=== PATIENT | male | born 1960 | race African-American/Black ===

== ENCOUNTER 2016-04-21 19:12 | Emergency (ER) | payer MEDICARE, MEDICAID ==
[~2016-04-21] VITALS: Ht 175.3 cm; Wt 90.7 kg
[~2016-04-21 19:12] MED LIST: AMIN30LI4 PO; ATOR10TA PO; BISA10SU8 RC; CALC-7 PO; CARV12.52 PO; CLON0.1T PO; DIVA500T4 PO; DOCU-25 PO; HYDR-4075 PO; HYDR100T27 PO; LINA5TAB PO; LORA0.5T PO; MAGN400O6 PO; MINO2.5T2 PO; NA P133E RC; NIFE60TA2 PO; NITR0.4T6 SL; OLAN5TAB3 PO; TYL2T PO
[2016-04-21 20:32] VITALS: BP 150/86
--- NOTE | 2016-04-22 01:27 | NUR ---
EMT GIVEN REPORT
== END 2016-04-22 01:45 ==
LOC: ER 19:15
DX: Z00.8 Encounter for other general examination (principal); E11.9 Type 2 diabetes mellitus without complications; I10 Essential (primary) hypertension; F20.9 Schizophrenia, unspecified
CPT/HCPCS: 99283; A4606; Z7502; Z7610

== ENCOUNTER 2025-02-10 14:26 | Inpatient (IN) | payer MEDICARE, OTHER ==
[~2025-02-10] VITALS: Ht 177.8 cm; Wt 93.9 kg
[~2025-02-10 14:26] MED LIST changes: +BISA10SU11 RC; -BISA10SU8 RC; +DOCU-141 PO; -DOCU-25 PO; +NITR0.4T48 SL; -NITR0.4T6 SL
[2025-02-10] MEDS ORDERED: LEVE500T20 PO (15:23)
[2025-02-10] MEDS ORDERED: RISP1TAB97 PO (15:23)
[2025-02-10] MEDS ORDERED: ASPI-1169 PO (15:23)
[2025-02-10] MEDS ORDERED: DIVA125C5 PO (15:23)
[2025-02-10] MEDS ORDERED: LOSA50TA39 PO (15:23)
[2025-02-10] MEDS ORDERED: APIX2.5T PO (15:23)
[2025-02-10] MEDS ORDERED: CARV12.52 PO (15:23)
[2025-02-10] MEDS ORDERED: LEVO15TA5 PO (15:23)
[2025-02-10] MEDS ORDERED: POTA25TA7 PO (15:23)
[2025-02-10] MEDS ORDERED: MULT-213 PO (15:23)
[2025-02-10] MEDS ORDERED: CLON0.3P TD (15:23)
[2025-02-10] MEDS ORDERED: Z GUARD REMEDY 4 OZ OINT TP PRN (16:00)
[2025-02-10] MEDS ORDERED: LORAZEPAM INJ 2 MG/ML VIAL ONE (16:00)
[2025-02-10] MEDS ORDERED: ONDANSETRON HCL/PF 4 MG/2 ML VIAL IVP PRN (16:00)
[2025-02-10] MEDS ORDERED: IV NS 0.9% 1,000 ML IV PRN (16:00)
[2025-02-10] MEDS ORDERED: ACETAMINOPHEN 325 MG TABLET PO PRN (16:00)
[2025-02-10] MEDS ORDERED: MAG HYDROX/AL HYDROX/SIMETH 30 ML UDC PO PRN (16:00)
[2025-02-10] MEDS ORDERED: MAGNESIUM HYDROXIDE 30 ML UDC PO PRN (16:00)
[2025-02-10] MEDS: LORAZEPAM INJ 2 MG/ML VIAL IM ONE (16:09)
[2025-02-10] MEDS ORDERED: NA PHOS,M-B/NA PHOS,DI-BA 1 EA ENEMA RC PRN (16:30)
[2025-02-10] MEDS ORDERED: NITROGLYCERIN 0.4 MG/TAB BOTTLE SL PRN (16:30)
[2025-02-10] MEDS: LEVETIRACETAM (250 MG) 250 MG TABLET PO SCH (17:00)
[2025-02-10] MEDS: APIXABAN 2.5 MG TABLET PO SCH (17:00)
[2025-02-10] MEDS: DIVALPROEX SODIUM 125 MG CAP.SPRINK PO SCH (17:00)
[2025-02-10] MEDS: LOSARTAN POTASSIUM 50 MG TABLET PO SCH (17:00)
[2025-02-10] MEDS: CARVEDILOL 12.5 MG TABLET PO SCH (17:00)
[2025-02-10] MEDS: POTASSIUM BICARBONATE/CIT AC 25 MEQ TABLET.EFF PO SCH (18:30)
[2025-02-10] MEDS: IV NS 0.9% 1,000 ML BAG IV ONE (19:00)
[2025-02-10] MEDS: IV 1/2NS 1000 ML 1,000 ML IV SCH (19:00)
[2025-02-10 20:05] VITALS: BP 146/100; TEMP 97.3; O2SAT 95
[2025-02-10] MEDS: ATORVASTATIN 10 MG TABLET PO SCH (22:00)
[2025-02-11 00:05] VITALS: BP 172/106; TEMP 97.7; O2SAT 96
[2025-02-11 04:05] VITALS: BP 203/104; TEMP 97.5; O2SAT 99
[2025-02-11 08:00] VITALS: BP 150/98; TEMP 97.7; O2SAT 98
[2025-02-11] MEDS ORDERED: IV 1/2NS 1000 ML 1,000 ML IV PRN (08:00)
[2025-02-11] MEDS: ASPIRIN 81 MG TAB.CHEW PO SCH (09:00)
[2025-02-11] MEDS ORDERED: POTASSIUM BICARBONATE/CIT AC 25 MEQ TABLET.EFF PO SCH (09:00)
[2025-02-11 12:00] VITALS: TEMP 98.1; O2SAT 100
[2025-02-11 16:00] VITALS: BP 217/132; TEMP 99.1; O2SAT 99
[2025-02-11] MEDS ORDERED: OLANZAPINE 5 MG TABLET PO PRN (16:30)
[2025-02-11 20:00] VITALS: BP 177/117; TEMP 97.7; O2SAT 98
[2025-02-12] VITALS (7 sets, daily range): BP systolic 151–280; BP diastolic 111–200; TEMP 97.5–98.8; O2SAT 96–100
[2025-02-12] MEDS: CLONIDINE HCL 0.1 MG TABLET PO PRN (00:59)
[2025-02-12] MEDS: OLANZAPINE 10 MG VIAL IM PRN (01:15)
[2025-02-12] MEDS: CLONIDINE HCL 0.3 MG/24H PTWK 1 EA PATCH TD SCH (09:39)
[2025-02-12 14:08] LABS: APPEARANCE,URINE CLEAR (CLEAR); BLOOD, URINE TRACE-INTA Ery/uL (NEGATIVE); LEUKOCYTE ESTERASE ,URINE NEGATIVE (NEGATIVE); NITRITE, URINE NEGATIVE (NEGATIVE); UGLUCOSE NEGATIVE (NEGATIVE)
[2025-02-12 14:13] LABS: CREATININE, URINE 228.3 MG/DL (30.0-125.0); URINE SODIUM, RANDOM 35.0 mmol/l (40-220); URINE TOTAL PROTEIN 56.6 mg/dL (0-11.9)
[2025-02-12 14:21] LABS: ADD URINE CULTURE NO
[2025-02-12] MEDS: NITROGLYCERIN PACKET 1 GM PACKET TOP SCH (16:01)
[2025-02-12 16:16] LABS: EOSINOPHIL,URINE None Seen
[2025-02-12] MEDS ORDERED: NITROGLYCERIN PACKET 1 GM PACKET TOP SCH (17:00)
[2025-02-13] VITALS: BP 198/127; TEMP 98.1; O2SAT 98
[2025-02-13 04:00] VITALS: BP 193/118; TEMP 98.2; O2SAT 97
[2025-02-13 08:00] VITALS: BP 191/147; TEMP 98.4; O2SAT 93
[2025-02-13 16:00] VITALS: BP 219/126; TEMP 98.4; O2SAT 99
[2025-02-13 20:00] VITALS: BP 197/118; TEMP 98.6; O2SAT 99
[2025-02-14 04:00] VITALS: BP 191/110; TEMP 98; O2SAT 100
[2025-02-14 08:00] VITALS: BP 229/136; TEMP 98.4; O2SAT 98
[2025-02-14 16:00] VITALS: BP 190/121; TEMP 98.2; O2SAT 98
[2025-02-14 20:00] VITALS: BP 166/117; TEMP 98.4; O2SAT 99
[2025-02-15 08:00] VITALS: BP 206/112; TEMP 97.9; O2SAT 100
[2025-02-15 16:00] VITALS: BP 198/122; TEMP 98.2; O2SAT 99
[2025-02-15 20:30] VITALS: BP 175/115; TEMP 97.7; O2SAT 98
[2025-02-15] MEDS: hydrALAZINE HCL IV 20 MG VIAL IV PRN (21:44)
[2025-02-16 04:25] VITALS: BP 166/110; TEMP 98; O2SAT 100
[2025-02-16 08:00] VITALS: BP 229/134; TEMP 98.6; O2SAT 95
[2025-02-16 16:00] VITALS: BP 181/122; TEMP 98.4; O2SAT 100
[2025-02-16 20:00] VITALS: BP 185/106; TEMP 97.5; O2SAT 98
[2025-02-17 08:00] VITALS: BP 195/116; TEMP 98; O2SAT 99
[2025-02-18 04:00] VITALS: BP_SYST 0
[2025-02-18 08:00] VITALS: BP 197/111; TEMP 98.8; O2SAT 95
[2025-02-18 16:00] VITALS: TEMP 98.8; O2SAT 95
[2025-02-18 20:00] VITALS: BP 154/107; TEMP 98.3; O2SAT 95
[2025-02-19 04:00] VITALS: BP 154/107; TEMP 98.3; O2SAT 95
[2025-02-19 08:00] VITALS: BP 197/127; TEMP 98.3; O2SAT 95
[2025-02-19] MEDS: OLANZAPINE 2.5 MG TABLET PO SCH (13:04)
[2025-02-19 16:00] VITALS: BP 129/86; TEMP 98; O2SAT 95
[2025-02-19] MEDS: ACETAMINOPHEN 325 MG TABLET PO PRN (16:34)
[2025-02-19 20:00] VITALS: BP 154/106; TEMP 97.9; O2SAT 99
[2025-02-20 04:00] VITALS: BP 154/99; TEMP 97.9; O2SAT 98
[2025-02-20 08:00] VITALS: BP 188/132; TEMP 97.3; O2SAT 98
[2025-02-20 09:59] VITALS: BP 118/77; TEMP 97; O2SAT 98
[2025-02-20] MEDS ORDERED: Olanzapine PO ×2 (10:54)
[2025-02-20] MEDS ORDERED: RISP0.2515 PO (10:54)
== END 2025-02-20 12:57 | DRG 101 ==
LOC: ER 14:33 → TELE1 16:36 → MEDSG1 02-13 08:48
PROVIDERS: ADMIT Internal Medicine; ATTEND Student in an Organized Health Care Education/Training Program
DX: G40.909 Epilepsy, unspecified, not intractable, without status epilepticus (principal); I13.0 Hypertensive heart and chronic kidney disease with heart failure and stage 1 through stage 4 chronic kidney disease, or unspecified chronic kidney disease; F02.818 Dementia in other diseases classified elsewhere, unspecified severity, with other behavioral disturbance; I50.9 Heart failure, unspecified; G93.89 Other specified disorders of brain; F29 Unspecified psychosis not due to a substance or known physiological condition; E11.22 Type 2 diabetes mellitus with diabetic chronic kidney disease; D64.9 Anemia, unspecified; F25.9 Schizoaffective disorder, unspecified; F06.8 Other specified mental disorders due to known physiological condition; I69.351 Hemiplegia and hemiparesis following cerebral infarction affecting right dominant side; N18.9 Chronic kidney disease, unspecified; J44.9 Chronic obstructive pulmonary disease, unspecified; I25.10 Atherosclerotic heart disease of native coronary artery without angina pectoris; M19.90 Unspecified osteoarthritis, unspecified site; Z79.01 Long term (current) use of anticoagulants; Z79.82 Long term (current) use of aspirin; Z79.899 Other long term (current) drug therapy; E78.5 Hyperlipidemia, unspecified; Z91.148 Patient's other noncompliance with medication regimen for other reason; F39 Unspecified mood [affective] disorder; M89.8X9 Other specified disorders of bone, unspecified site; I69.398 Other sequelae of cerebral infarction
CPT/HCPCS: 36415; 70450-TC; 76770-TC; 81001; 82570-TC; 84300-TC; 87081-TC; 97112-TC; 97116-TC; 97530-TC; 97535-TC; G0378; J1200; J2060; J3490; J7030